=== PATIENT | male | born 1990 | race Caucasian/White ===

== ENCOUNTER 2018-01-18 19:40 | Emergency (ER) | payer OTHER ==
[~2018-01-18] VITALS: Ht 182.9 cm; Wt 86.7 kg
[2018-01-18 19:47] VITALS: BP 107/65; Ht 182.9 cm; Wt 86.7 kg
== END 2018-01-18 22:14 | disposition home or self-care (01) ==
LOC: ED 19:40
DX: S90.31XA Contusion of right foot, initial encounter (principal); W22.8XXA Striking against or struck by other objects, initial encounter; Y93.64 Activity, baseball; Y92.39 Other specified sports and athletic area as the place of occurrence of the external cause; Y99.8 Other external cause status